=== PATIENT | male | born 1980 | race American Indian/Alaskan Native ===

== ENCOUNTER 2017-10-01 17:38 | Emergency (ER) | payer SELFPAY ==
[2017-10-01 18:00] VITALS: BP 151/107
[2017-10-01] MEDS ORDERED: MOTRIN PO ONE (19:13)
--- NOTE | 2017-10-01 19:27 | XRay Report ---
FINAL REPORT EXAM: XR ANKLE 3+V RT HISTORY: Ankle swelling and bruising TECHNIQUE: Three views right ankle Comparison: None FINDINGS: Normal bony mineralization. There is a vertical fracture through the medial plafond extending to the articular surface. There is a cortical buckle along the medial malleolus. There is a small ankle joint effusion and significant soft tissue swelling with disruption of Kager's fat pad. The mortise is preserved. The plafond is intact. There is mild sclerosis along the lateral distal tibial metaphysis which may represent the sequela from previous trauma. IMPRESSION: Nondisplaced vertical fracture of the medial tibial plafond which appears to exit along the medial malleolar cortical surface. The talus appears to be intact. Significant soft tissue swelling with disruption of Kager's fat pad. Sclerosis along the lateral distal tibial metaphysis may be the sequela of previous injury.
--- NOTE | 2017-10-01 19:30 | XRay Report ---
FINAL REPORT EXAM: XR FOOT 3+V RT HISTORY: Foot swelling, bruising TECHNIQUE: Three views right foot Comparison: Ankle series same day FINDINGS: Normal bony mineralization. Significant hallux valgus of the great toe metatarsophalangeal joint. Normal alignment of the forefoot with midfoot and midfoot with the hindfoot. Soft tissue reticulation of Kager's fat pad. No fracture or dislocation identified. IMPRESSION: Known nondisplaced vertical medial malleolar fracture. No fracture or dislocation of the right foot. Hallux valgus 1st metatarsal-phalangeal joint.
--- NOTE | 2017-10-01 19:32 | Emergency Department Report ---
ED Extremity Problem HPI - General Chief complaint: Extremity Injury, Lower Stated complaint: RIGHT ANKLE PAIN Time Seen by Provider: 10/01/17 19:05 Source: patient Mode of arrival: Ambulatory Limitations: No Limitations - History of Present Illness Initial comments: Patient is a 37-year-old black male who is presenting with ankle pain. Patient states that he was walking yesterday and missed a step and twisted his ankle. Patient has a large amount of swelling and pain to the lateral right ankle. There is bruising present. Patient is able to place some weight on the ankle but he is using crutches. Patient has no other injuries at this time. Patient states pain is a 7 out of 10 in severity. Severity scale (0 -10): 6 Quality: aching Consistency: constant - Related Data Previous Rx's Medication Instructions Recorded Last Taken Type HYDROcodone/APAP 5-325 [[place] [facility] 1 each PO Q6HR PRN #15 tablet 10/01/17 Unknown Rx 5/325] Ibuprofen [Motrin] 800 mg PO Q8HR PRN #20 tablet 10/01/17 Unknown Rx Allergies Allergy/AdvReac Type Severity Reaction Status Date / Time No Known Allergies Allergy Unverified 10/01/17 18:00 ED Review of Systems ROS: Stated complaint: RIGHT ANKLE PAIN Other details as noted in HPI Comment: All other systems reviewed and negative ED Past Medical Hx - Past Medical History Previous Medical History?: No - Surgical History Past Surgical History?: No - Social History Smoking Status: Current Every Day Smoker Substance Use Type: None - Medications Home Medications: Home Medications Medication Instructions Recorded Confirmed Last Taken Type HYDROcodone/APAP 5-325 [[facility] 1 each PO Q6HR PRN #15 tablet 10/01/17 Unknown Rx 5/325] Ibuprofen [Motrin] 800 mg PO Q8HR PRN #20 tablet 10/01/17 Unknown Rx ED Physical Exam - General Limitations: No Limitations General appearance: alert, in no apparent distress - Head Head exam: Present: atraumatic, normocephalic - Eye Eye exam: Present: normal appearance - ENT ENT exam: Present: mucous membranes moist - Neck Neck exam: Present: normal inspection - Respiratory Respiratory exam: Present: normal lung sounds bilaterally. Absent: respiratory distress - Cardiovascular Cardiovascular Exam: Present: regular rate, normal rhythm. Absent: systolic murmur, diastolic murmur, rubs, gallop - GI/Abdominal GI/Abdominal exam: Present: soft, normal bowel sounds - Rectal Rectal exam: Present: deferred - Extremities Exam Extremities exam: Present: normal inspection, joint swelling (patient has tenderness to palpation to the lateral malleolus. There is significant soft tissue swelling and ecchymosis.) - Back Exam Back exam: Present: normal inspection - Neurological Exam Neurological exam: Present: alert, oriented X3 - Psychiatric Psychiatric exam: Present: normal affect, normal mood - Skin Skin exam: Present: warm, dry, intact, normal color. Absent: rash ED Course Vital Signs 10/01/17 17:57 Temperature 98.9 F Pulse Rate 75 Respiratory 16 Rate Blood Pressure 151/107 O2 Sat by Pulse 99 Oximetry ED Medical Decision Making - Radiology Data FINDINGS: Normal bony mineralization. There is a vertical fracture through the medial plafond extending to the articular surface. There is a cortical buckle along the medial malleolus. There is a small ankle joint effusion and significant soft tissue swelling with disruption of Kager's fat pad. The mortise is preserved. The plafond is intact. There is mild sclerosis along the lateral distal tibial metaphysis which may represent the sequela from previous trauma. IMPRESSION: Nondisplaced vertical fracture of the medial tibial plafond which appears to exit along the medial malleolar cortical surface. The talus appears to be intact. Significant soft tissue swelling with disruption of Kager's fat pad. Sclerosis along the lateral distal tibial metaphysis may be the sequela of previous injury. Transcribed By: MANNY Dictated By: MONIKA HAMM Electronically Authenticated By: MONIKA HAMM Signed Date/Time: 10/01/171920 - Medical Decision Making Patient will be splinted with a posterior short leg splint with side stirrups will be discharged home with follow-up Dr. Davenport. Critical care attestation.: If time is entered above; I have spent that time in minutes in the direct care of this critically ill patient, excluding procedure time. ED Disposition Clinical Impression: Tibial fracture Qualifiers: Encounter type: initial encounter Tibia location: distal Fracture type: closed Fracture morphology: unspecified fracture morphology Laterality: right Qualified Code(s): S82.301A - Unspecified fracture of lower end of right tibia, initial encounter for closed fracture Disposition: - TO HOME OR SELFCARE Is pt being admited?: No Does the pt Need Aspirin: No Condition: Stable Instructions: Ankle Fracture (ED) Referrals: MOJGAN DAVENPORT MD [Staff Physician] - 3-5 Days
== END 2017-10-01 19:50 | disposition home or self-care (01) ==
LOC: ED 17:38
DX: S82.391A Other fracture of lower end of right tibia, initial encounter for closed fracture (principal); F17.200 Nicotine dependence, unspecified, uncomplicated; X50.1XXA Overexertion from prolonged static or awkward postures, initial encounter; Y93.01 Activity, walking, marching and hiking; Y99.8 Other external cause status; Y92.89 Other specified places as the place of occurrence of the external cause